=== PATIENT | male | born 1950 | race Caucasian/White ===

== ENCOUNTER 2016-07-17 01:17 | Emergency (ER) | payer OTHER ==
[~2016-07-17] VITALS: Ht 185.4 cm; Wt 109.4 kg
[~2016-07-17 01:17] MED LIST: NOHOMEMEDS
[2016-07-17] MEDS ORDERED: CLINDAMYCIN HC300 MG PO (02:54)
[2016-07-17] MEDS ORDERED: PERCOCET 5/31 TABLET PO (02:54)
[2016-07-17 03:28] VITALS: BP 153/84
== END 2016-07-17 03:34 | disposition home or self-care (01) ==
LOC: EME 01:17
PROC: 0C96XZZ Drainage of Lower Gingiva, External Approach (ICD-10-PCS; principal; 2016-07-17)
DX: K04.7 Periapical abscess without sinus (principal); S02.5XXA Fracture of tooth (traumatic), initial encounter for closed fracture; X58.XXXA Exposure to other specified factors, initial encounter; K02.9 Dental caries, unspecified; F17.200 Nicotine dependence, unspecified, uncomplicated
CPT/HCPCS: 99281; 99284